=== PATIENT | female | born 1940 | race Caucasian/White ===

== ENCOUNTER 2023-07-17 15:13 | Outpatient (REF) | payer MEDICARE, SELFPAY ==
[2023-07-17 15:27] LABS: Basophils Percent Auto 0.3 % (0.0-3.0); Eosinophils Percent Auto 1.1 % (0.0-7.0); Hematocrit 31.2 % (33.0-51.0); Immature Granulocytes Pct Auto 0.8 %; Lymphocytes Percent Auto 18.1 % (20-44); Mean Corpuscular HGB Conc 32 gm/dL (32-36); Mean Corpuscular Hemoglobin 35 pg (26-34); Mean Corpuscular Volume 108 fL (80-100); Monocytes Percent Auto 11.7 % (0.0-11.0); Platelet Count* 68 K/uL (140-440); RDW Coefficient of Variation % 18.8 % (11.5-15.5); White Blood Count* 3.59 K/uL (4.50-11.00)
[2023-07-17 15:29] LABS: Chloride* 103 mmol/L (96-114); Potassium* 4.1 mmol/L (3.6-5.1); Sodium* 132 mmol/L (135-149)
[2023-07-17 15:32] LABS: Anion Gap 6 mEq/L (7-15); Carbon Dioxide* 23 mmol/L (20-32); Creatinine* 0.4 mg/dL (0.5-1.5); Estimated Glomerular Filt Rate 99 ml/min
[2023-07-17 15:33] LABS: Blood Urea Nitrogen* 18 mg/dL (7-30); Calcium* 9.4 mg/dL (8.4-10.6); Glucose* 178 mg/dL (60-115)
[2023-07-17 15:35] LABS: Slide Review Reflex Yes
[2023-07-17 15:50] LABS: Slide Review Acceptable Review (Acceptable)
== END 2023-07-17 15:14 | disposition home or self-care (01) ==
LOC: NPINS 15:13
PROVIDERS: PCP Family Medicine; Visit Provider Nurse Practitioner Adult Health
DX: K74.69 Other cirrhosis of liver (principal)
CPT/HCPCS: 80048; 82140; 85025

== ENCOUNTER 2023-07-26 10:22 | Outpatient (CLI) | payer OTHER, SELFPAY | END 2023-07-26 10:23 | disposition home or self-care (01) | LOC: AMB 07-31 06:46 | PROVIDERS: PCP Family Medicine; Visit Provider Emergency Medicine | DX: R41.82 Altered mental status, unspecified (principal) | CPT/HCPCS: A0425; A0427 ==

== ENCOUNTER 2023-07-26 10:47 | Inpatient (IN) | payer OTHER, SELFPAY ==
[2023-07-26] VITALS (22 sets, daily range): BP systolic 84–113; BP diastolic 35–70; PULSE 91–104; RESP 20–26; TEMP 36.2–36.4; O2SAT 92–97
--- NOTE | 2023-07-26 11:02 | ED_ITS ---
HPI - General Adult General Date Seen: 07/26/23 Chief complaint: Weakness Stated complaint: altered mental status Time Seen by Provider: 07/26/23 10:52 Source: patient, EMS, RN notes reviewed and old records reviewed Mode of arrival: EMS Limitations: no limitations History of Present Illness HPI narrative: The patient is an 83-year-old woman brought in by EMS for evaluation of altered mental status. She lives at [address] [facility], she has past medical history notable for cirrhosis, dementia, chronic kidney disease and UTI diagnosed on July 20, started on Keflex. They report the for the past 1-2 days she has been less responsive than usual and has not wanted to eat or drink. There is no reports of fever, vomiting,. Medics said that she was minimally responsive for them in terms of not answering questions. She is alert. To me, she answers questions quickly and appropriately. She denies pain or shortness of breath. She denies urinary symptoms. She knows that she was brought to the hospital. She says she does not feel sick, feels normal. Medics noted a blood sugar of 162, systolic blood pressure of 113. Review of her senior care paperwork shows the UA grew out Pseudomonas, I am not certain about sensitivities. She had blood work done on July 16, this was unremarkable aside from mild anemia with a hemoglobin of 10. Of an ammonia level was 10 at that time as well. Her code status is DNR DNI. Related Data Home Medications Medication Instructions Recorded Confirmed acetaminophen 325 mg tablet mg PO 07/26/23 aspirin 81 mg tablet,delayed 81 mg PO DAILY 07/26/23 07/26/23 release cholecalciferol (vitamin D3) 50 50 mcg PO DAILY 07/26/23 07/26/23 mcg (2,000 unit) tablet glipizide 5 mg tablet, extended 5 mg PO DAILY 07/26/23 07/26/23 release 24 hr insulin aspart U-100 100 unit/mL 1 sliding scale dose subcut 07/26/23 07/26/23 (3 mL) subcutaneous pen TIDWMEAL insulin glargine 100 unit/mL (3 20 unit subcut BID 07/26/23 07/26/23 mL) subcutaneous pen (Basaglar KwikPen U-100 Insulin) lactulose 10 gram/15 mL oral 45 ml PO TID 07/26/23 07/26/23 solution metoprolol tartrate 25 mg tablet 6.25 mg PO BID 07/26/23 07/26/23 mirtazapine 7.5 mg tablet 7.5 mg PO QPM 07/26/23 07/26/23 Allergies Allergy/AdvReac Type Severity Reaction Status Date / Time No Known Drug Allergies Allergy Verified 07/26/23 11:00 Review of Systems Status of ROS: Reports: 6 or more systems reviewed and unremarkable except as noted in History and below [facility] Medical History (Updated 07/26/23 @ 15:00 by Joanne Lockhart MD) Recurrent UTI ?N39.0 - Urinary tract infection, site not specified (ICD-10) Crohn disease ?K50.90 - Crohn's disease, unspecified, without complications (ICD-10) 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 ?K75.81 - Nonalcoholic steatohepatitis (VALENZUELA) (ICD-10) ?K74.60 - Unspecified cirrhosis of liver (ICD-10) Insulin dependent diabetes mellitus Surgical History (Updated 07/26/23 @ 13:24 by Joanne Lockhart MD) Hx of tonsillectomy ?Z90.89 - Acquired absence of other organs (ICD-10) Hx of appendectomy ?Z90.49 - Acquired absence of other specified parts of digestive tract (ICD- 10) S/P ILANA-BSO ?Z90.710 - Acquired absence of both cervix and uterus (ICD-10) ?Z90.722 - Acquired absence of ovaries, bilateral (ICD-10) ?Z90.79 - Acquired absence of other genital organ(s) (ICD-10) S/P ORIF (open reduction internal fixation) fracture ?Z98.890 - Other specified postprocedural states (ICD-10) ?Z87.81 - Personal history of (healed) traumatic fracture (ICD-10) Social History (Updated 07/26/23 @ 14:34 by Joanne Lockhart MD) Narrative: Lived with until a mechanical fall at home on June 18, has been at [facility] since June 24. Son Ervin would be medical decision maker if needed. Has discussed with family in the past that she requests DNR DNI status. What is your current living situation?: I presently have a place to live Problems where you live: no known problems Problems where you live details: no known problems In the past 12 months, utilities in danger of being shut off: no In past 12 months, lack of transportation kept you from medical appts, meetings, work, or getting things needed for daily living: no In the past 12 mos, have been you worried that your food would run out before you had money to buy more?: never true In the past 12 mos, the food you bought just didn't last and you didn't have money to buy more?: never true Highest level of school completed/degree received: 10th grade Smoking Status: Never smoker Do you use any of these nicotine containing products: None How often do you have a drink containing alcohol: never How often do you have six or more drinks on one occasion: Never AUDIT-C Alcohol total score: 0 Non-prescribed substance use: denies use Caffeine: No How often does anyone, including family, friends and others, physically hurt you : never How often does anyone, including family, friends and others, insult or talk down to you: never How often does anyone, including family, friends and others, threaten you with harm: never How often does anyone, including family, friends and others, scream or curse at you: never service: No Exam Narrative: Exam Narrative: Vital signs as noted above. In general, an alert, somewhat cachectic elderly woman. Nontoxic. Head: Normocephalic, atraumatic. Eyes: Pupils are equal reactive. Extraocular movements are full. Conjunctivae are icteric. ENT: Mucous membranes are slightly dry. Neck: Supple without lymphadenopathy. Heart: Mildly tachycardic, mildly irregular. Lungs: Clear bilaterally. Somewhat tachypneic, a little bit of accessory muscle use. Abdomen: Protuberant, suspect ascites. Nontender to palpation. Extremities: Splint in place on the left lower extremity where she previously had a fracture. No significant edema. Neurologic: Patient is alert and oriented to person and place. Speech is fluent. Face is symmetric. Affect: Normal. Skin: Warm and dry. Well perfused. Const: Vital Signs, click to edit/add: Vital Signs - 24 hr 07/26/23 10:55 07/26/23 11:03 07/26/23 11:04 Temperature 97.2 F L Pulse Rate 97 100 Pulse Rate [Pulse Oximeter] 99 Respiratory Rate 24 Blood Pressure 98/56 L Blood Pressure [Ri ght Upper Arm] 102/64 Pulse Oximetry 95 93 93 Oxygen Delivery Me thod Room Air 07/26/23 11:10 07/26/23 11:23 07/26/23 11:30 Temperature Pulse Rate 97 92 Pulse Rate [Pulse Oximeter] Respiratory Rate Blood Pressure Blood Pressure [Ri ght Upper Arm] Pulse Oximetry 95 95 97 Oxygen Delivery Me thod 07/26/23 11:31 07/26/23 11:45 07/26/23 12:00 Temperature Pulse Rate 97 98 97 Pulse Rate [Pulse Oximeter] Respiratory Rate Blood Pressure 93/59 L Blood Pressure [Ri ght Upper Arm] Pulse Oximetry 96 96 95 Oxygen Delivery Me thod 07/26/23 12:01 07/26/23 12:02 07/26/23 12:15 Temperature Pulse Rate 101 H 98 104 H Pulse Rate [Pulse Oximeter] Respiratory Rate Blood Pressure 98/42 L Blood Pressure [Ri ght Upper Arm] Pulse Oximetry 96 94 96 Oxygen Delivery Me thod 07/26/23 12:41 07/26/23 12:45 07/26/23 12:51 Temperature Pulse Rate 94 99 100 Pulse Rate [Pulse Oximeter] Respiratory Rate Blood Pressure 113/55 L Blood Pressure [Ri ght Upper Arm] Pulse Oximetry 92 94 94 Oxygen Delivery Me thod 07/26/23 13:00 07/26/23 13:01 Temperature Pulse Rate 96 96 Pulse Rate [Pulse Oximeter] Respiratory Rate Blood Pressure 98/58 L Blood Pressure [Ri ght Upper Arm] Pulse Oximetry 95 93 Oxygen Delivery Me thod Documenting provider has reviewed patient's vital signs: yes Course Course ED Course: Patient's mental status here seems to be probably at baseline, but family does also report decreased urine output over the past week or so, increased weakness. Patient denies complaints, she does seem tachypneic although she denies shortness of breath and O2 sats are normal. Diagnostic considerations brought a t this point include infection due to UTI, pyelonephritis, spontaneous bacterial peritonitis or other, sepsis, metabolic derangement, encephalopathy, acute coronary syndrome, pulmonary embolism, among others. Additional history provided by her son and [id number] on their arrival is that she was discharged to [facility] at the end of May after sustaining a femur fracture for which she was treated at [facility]. They report that prior to that she lives independently with her at home and got around quite well. Since arriving to [facility], they report an 11 lb weight loss. Over the past week they say that she is looking much more poorly, she is much weaker, seems to be retaining fluid, and mentation is decreased. She does have a history of non alcohol cirrhosis, is followed at [facility] every couple years but apparently does not have a prior history of ascites. Patient's evaluation here is notable for a mildly elevated white blood cell count 11.3, hemoglobin of 10.9, platelets of a [id number]. INR elevated at 2, D dimer elevated at 13.7. Venous gas shows a partially compensatedmetabolic acidosis, pH is 7.3, CO2 of 28, bicarb of 14. Patient is tachypneic, but O2 sats are normal, suspect that her tachypnea is related to her significant acidosis, less suspicious of PE particularly in the setting of an elevated INR. Metabolic panel notable for a sodium of 133, normal potassium, CO2 is 11. Normal gap. BUN is elevated at 63, creatinine is 2, it was 0.4 when checked at the end of June. Blood sugar is 135. Lactate markedly elevated at 11.6, total bilirubin 2.4, direct 1.2, mild elevations of AST and ALT, normal alk-phos. Ammonia level is still pending. CRP is elevated at 16. Urinalysis continues to show 10-25 red cells, 50-100 white blood cells and looks grossly purulent. This was a catheterized specimen. Minimal output into the catheter. Review of prior culture shows Pseudomonas which was sensitive to cefepime and imipenem among others. I did obtain a 2nd blood culture and then ordered imipenem. I gave her 250 mL of normal saline to start. I did do a bedside ultrasound, she has significant ascites, did not see a significant pericardial effusion or significant dilation of the right ventricle. She seems to have tolerated 250 mL of normal saline, will order a 2nd 250 mL. I am hesitant to use large volumes of fluid given her liver and renal failure. I have had an lengthy discussion with her son and [id number] about her status, which I think is tenuous. Discussed that if they would like more aggressive measures, ICU, hepatic specialist, option for dialysis etcetera we would need to transfer her. They feel that her wishes would be to be more conservative. They are comfortable with hospitalization here in [place] and understand that we will try some antibiotics and fluid, consider paracentesis for comfort. They understand that if she does not reverse with these measures, we would switch to comfort care. I think spontaneous bacterial peritonitis is relatively low on my list given absence of any abdominal tenderness or pain. Given that she is going to be on Imipenem for the urinary tract infection she will have adequate coverage for this. Likewise, she has a markedly elevated D-dimer and long bone fracture in May, she has been essentially bed ridden since then. She does not have asymmetric edema in her legs, she is not hypoxic, but certainly is at risk for pulmonary embolism. However, her INR is elevated, she cannot have CT scan of the chest. Discussed this all with the hospitalists, will consider Dopplers of the legs if this seems clinically appropriate. Second lactate was drawn just before leaving to the floor. Vital Signs Vital signs: Initial Vital Signs Temperature 97.2 F L 07/26/23 10:55 Temperature Source Temporal Artery Scan 07/26/23 10:55 Pulse Rate 99 07/26/23 10:55 Respiratory Rate 24 07/26/23 10:55 Blood Pressure 102/64 07/26/23 10:55 Blood Pressure Mean 76 07/26/23 10:55 Blood Pressure Position Supine 07/26/23 10:55 Pulse Oximetry 95 07/26/23 10:55 Oxygen Delivery Method Room Air 07/26/23 10:55 Vital Signs Temperature 97.2 F L 07/26/23 10:55 Pulse Rate 99 07/26/23 10:55 Respiratory Rate 24 07/26/23 10:55 Blood Pressure 102/64 07/26/23 10:55 Pulse Oximetry 95 07/26/23 10:55 Oxygen Delivery Method Room Air 07/26/23 10:55 Temperature 97.6 F 07/26/23 15:22 Pulse Rate 96 07/26/23 13:01 Respiratory Rate 26 H 07/26/23 15:22 Blood Pressure 96/70 07/26/23 15:22 Pulse Oximetry 94 07/26/23 15:22 Oxygen Delivery Method Room Air 07/26/23 15:22 Medications Administered Medications: Discontinued Medications Generic Name Dose Route Start Last Admin Trade Name Freq PRN Reason Stop Dose Admin Sodium Chloride 250 mls @ 250 mls/hr 07/26/23 10:55 07/26/23 13:03 0.9 % Sodium Chloride 250 Ml IV 07/26/23 11:54 Infused .Q1H ONE Infusion Imipenem/Cilastatin Sodium 500 100 mls @ 200 mls/hr 07/26/23 12:41 07/26/23 13:16 mg/ Sodium Chloride IVPB 07/26/23 12:42 200 mls/hr ONCE ONE Administration Medical Decision Making Lab Data Labs: Lab Results 07/26/23 07/26/23 07/26/23 Range/Units 11:15 11:20 12:00 WBC 11.26 H (4.50-11.00) K/uL RBC 3.21 L (4.00-5.20) m/uL Hgb 10.9 L (12.0-16.0) gm/dL Hct 35.6 (33.0-51.0) % MCV 111 H (80-100) fL MCH 34 (26-34) pg MCHC 31 L (32-36) gm/dL RDW Coeff of Farhan 18.4 H (11.5-15.5) % Plt Count 121 L (140-440) K/uL Neut % (Auto) 85.1 H (42.0-72.0) % Lymph % (Auto) 7.5 L (20-44) % [place] % (Auto) 7.1 (0.0-11.0) % Eos % (Auto) 0.0 (0.0-7.0) % Baso % (Auto) 0.0 (0.0-3.0) % Neut # (Auto) 9.60 H (1.7-7.0) K/uL Lymph # (Auto) 0.80 L (0.90-2.90) K/uL [place] # (Auto) 0.80 (0.00-0.90) K/UL Eos # (Auto) 0.00 (0.00-0.50) K/uL Baso # (Auto) 0.00 (0.00-0.30) K/uL Abs Immat Gran (auto) 0.00 (0.00-0.30) K/uL Imm/Tot Granulo (auto) 0.3 % INR 1.99 H (0.91-1.10) D-Dimer Quant (PE/DVT) 13.69 H (0.00-0.50) ug/ml VBG pH 7.297 L (7.32-7.43) VBG pCO2 28 L (40-50) mmHG VBG pO2 44.2 (25-47) mmHG VBG HCO3 14 L (21-28) mmol/L Sodium 133 L (135-149) mmol/L Potassium 4.8 (3.6-5.1) mmol/L Chloride 107 (96-114) mmol/L Carbon Dioxide 11 L (20-32) mmol/L Anion Gap 15 (7-15) mEq/L BUN 63 H (7-30) mg/dL Creatinine 2.0 H (0.5-1.5) mg/dL Estimated GFR 24 ml/min Glucose 135 H (60-115) mg/dL Lactate 11.6 H* (0.5-1.9) mmol/L Calcium 10.4 (8.4-10.6) mg/dL Total Bilirubin 2.4 H (0.1-1.5) mg/dL Direct Bilirubin 1.2 H (0.0-0.5) mg/dL AST 42 H (12-35) U/L ALT 42 H (4-35) U/L Alkaline Phosphatase 108 (40-150) U/L Ammonia < 9.0 L (13.1-30.0) umol/L C-Reactive Protein 15.8 H (0.5-1.0) mg/dL Total Protein 7.3 (6.0-8.3) g/dL Albumin 2.7 L (3.3-5.0) g/dL Urine Color Brown A (Yellow) Urine Appearance Cloudy A (Clear) Urine pH 5.5 (5.0-8.5) Ur Specific [place] 1.020 (1.000-1.030) Urine Protein Trace A (Negative) Urine Glucose (UA) Negative (Negative) Urine Ketones Trace A (Negative) Urine Blood 2+ A (Negative) Urine Nitrite Positive A (Negative) Urine Bilirubin 1+ A (Negative) Urine Urobilinogen 0.2 (0.2-1.0) Ur Leukocyte Esterase 3+ A (Negative) Urine RBC 10-25 A (0-2) Urine WBC 50-100 A (0-5) Urine WBC Clumps Few A (None) Ur Squamous Epith Cells Moderate A (None-Few) Urine Bacteria Many A (None) POC Troponin I 0.02 (0.01-0.04) ng/ml 07/26/23 Range/Units 13:18 WBC (4.50-11.00) K/uL RBC (4.00-5.20) m/uL Hgb (12.0-16.0) gm/dL Hct (33.0-51.0) % MCV (80-100) fL MCH (26-34) pg MCHC (32-36) gm/dL RDW Coeff of Farhan (11.5-15.5) % Plt Count (140-440) K/uL Neut % (Auto) (42.0-72.0) % Lymph % (Auto) (20-44) % [place] % (Auto) (0.0-11.0) % Eos % (Auto) (0.0-7.0) % Baso % (Auto) (0.0-3.0) % Neut # (Auto) (1.7-7.0) K/uL Lymph # (Auto) (0.90-2.90) K/uL [place] # (Auto) (0.00-0.90) K/UL Eos # (Auto) (0.00-0.50) K/uL Baso # (Auto) (0.00-0.30) K/uL Abs Immat Gran (auto) (0.00-0.30) K/uL Imm/Tot Granulo (auto) % INR (0.91-1.10) D-Dimer Quant (PE/DVT) (0.00-0.50) ug/ml VBG pH (7.32-7.43) VBG pCO2 (40-50) mmHG VBG pO2 (25-47) mmHG VBG HCO3 (21-28) mmol/L Sodium (135-149) mmol/L Potassium (3.6-5.1) mmol/L Chloride (96-114) mmol/L Carbon Dioxide (20-32) mmol/L Anion Gap (7-15) mEq/L BUN (7-30) mg/dL Creatinine (0.5-1.5) mg/dL Estimated GFR ml/min Glucose (60-115) mg/dL Lactate 11.6 H* (0.5-1.9) mmol/L Calcium (8.4-10.6) mg/dL Total Bilirubin (0.1-1.5) mg/dL Direct Bilirubin (0.0-0.5) mg/dL AST (12-35) U/L ALT (4-35) U/L Alkaline Phosphatase (40-150) U/L Ammonia (13.1-30.0) umol/L C-Reactive Protein (0.5-1.0) mg/dL Total Protein (6.0-8.3) g/dL Albumin (3.3-5.0) g/dL Urine Color (Yellow) Urine Appearance (Clear) Urine pH (5.0-8.5) Ur Specific [place] (1.000-1.030) Urine Protein (Negative) Urine Glucose (UA) (Negative) Urine Ketones (Negative) Urine Blood (Negative) Urine Nitrite (Negative) Urine Bilirubin (Negative) Urine Urobilinogen (0.2-1.0) Ur Leukocyte Esterase (Negative) Urine RBC (0-2) Urine WBC (0-5) Urine WBC Clumps (None) Ur Squamous Epith Cells (None-Few) Urine Bacteria (None) POC Troponin I (0.01-0.04) ng/ml Discharge Plan Discharge Clinical Impression: Renal failure, Liver failure, Sepsis Patient Disposition: Admitted As Observation
[2023-07-26] MEDS: 0.9 % SODIUM CHLORIDE 250 ml 250 ML IV (11:20)
[2023-07-26 11:36] LABS: Hematocrit 35.6 % (33.0-51.0); Hemoglobin* 10.9 gm/dL (12.0-16.0); Immature Granulocytes Pct Auto 0.3 %; Lymphocytes Percent Auto 7.5 % (20-44); Mean Corpuscular HGB Conc 31 gm/dL (32-36); Mean Corpuscular Hemoglobin 34 pg (26-34); Mean Corpuscular Volume 111 fL (80-100); Monocytes Percent Auto 7.1 % (0.0-11.0); Neutrophils Percent Auto 85.1 % (42.0-72.0); Platelet Count* 121 K/uL (140-440); RDW Coefficient of Variation % 18.4 % (11.5-15.5); Red Blood Count 3.21 m/uL (4.00-5.20); White Blood Count* 11.26 K/uL (4.50-11.00)
[2023-07-26 11:38] LABS: Lactate Sepsis w/Reflex* 11.6 mmol/L (0.5-1.9)
[2023-07-26 11:39] LABS: HCO3 VBG 14 mmol/L (21-28); PCO2 VBG 28 mmHG (40-50); PO2 VBG 44.2 mmHG (25-47); pH VBG 7.297 (7.32-7.43)
[2023-07-26 11:56] LABS: Albumin* 2.7 g/dL (3.3-5.0); Chloride* 107 mmol/L (96-114)
[2023-07-26 11:57] LABS: Potassium* 4.8 mmol/L (3.6-5.1); Sodium* 133 mmol/L (135-149)
[2023-07-26 11:59] LABS: Estimated Glomerular Filt Rate 24 ml/min
[2023-07-26 12:00] LABS: Alkaline Phosphatase* 108 U/L (40-150); Anion Gap 15 mEq/L (7-15); Aspartate Amino Transferase* 42 U/L (12-35); Bilirubin Direct* 1.2 mg/dL (0.0-0.5); Bilirubin Total* 2.4 mg/dL (0.1-1.5); Blood Urea Nitrogen* 63 mg/dL (7-30); Calcium* 10.4 mg/dL (8.4-10.6); Carbon Dioxide* 11 mmol/L (20-32); Glucose* 135 mg/dL (60-115); Total Protein* 7.3 g/dL (6.0-8.3)
[2023-07-26 12:07] LABS: Troponin, Point-of-Care* 0.02 ng/ml (0.01-0.04)
[2023-07-26 12:16] LABS: Appearance Urine Cloudy (Clear); Bilirubin Urine 1+ (Negative); Blood Urine 2+ (Negative); Color Urine Brown (Yellow); Glucose Urine Negative (Negative); Ketones Urine Trace (Negative); Leukocyte Esterase Urine 3+ (Negative); Nitrite Urine Positive (Negative); Protein Urine Trace (Negative); Urobilinogen Urine 0.2 (0.2-1.0); pH Urine 5.5 (5.0-8.5)
--- NOTE | 2023-07-26 12:18 | CT_ITS ---
Patient: ARSLAN TREJO Facility:?[facility] R[facility] Patient ID:?[id number] Site Patient ID:?[id number]. Site :?[id number] Study:?CT-Abdomen/Pelvis without contrast-07/26/2023 12:44:50 PM Ordering Physician:Milagros Fleming Final Report: INDICATION: Liver failure new ascites decreased urine output TECHNIQUE: CT abdomen and pelvis without contrast. COMPARISON: None. FINDINGS: Lower chest: Peribronchial thickening partially seen and atelectasis within the lower lobes. Liver: Cirrhotic morphology liver. Gallbladder and bile ducts: Cholelithiasis Pancreas: Unremarkable. No mass or inflammation. Spleen: Splenic granulomas. Splenomegaly measuring 14.4 centimeters. Adrenal glands: Normal in size. No nodules. Kidneys: Normal in size. No suspicious masses, stones, or hydronephrosis. GI tract: Diverticulosis. Vasculature: Abdominal aorta is normal in caliber. Lymph nodes: No lymphadenopathy. Peritoneum/Abdominal Wall: Large volume abdominopelvic ascites. Probable dependent debris in the posterior pelvis. Diffuse subcutaneous edema Pelvis: Baker catheter in the decompressed urinary bladder Bones: Unremarkable for age. IMPRESSION: 1. Cirrhotic morphology liver mildly enlarged spleen. Large volume abdominopelvic ascites. Diffuse subcutaneous edema. Please note that all CT scans at this facility use dose modulation, iterative reconstruction, and/or weight-based dosing when appropriate to reduce radiation dose to as low as reasonably achievable. Dictated by Diann Guevara MD @ 07/26/2023 2:09:20 PM Signed by:?Diann Guevara MD @07/26/2023 2:09:20 PM (Electronic Signature)
[2023-07-26 12:20] LABS: C Reactive Protein* 15.8 mg/dL (0.5-1.0); D Dimer Quantitative* 13.69 ug/ml (0.00-0.50); Slide Review Reflex No
[2023-07-26 12:36] LABS: Alanine Aminotransferase* 42 U/L (4-35)
[2023-07-26 12:37] LABS: Bacteria Urine Many; Squamous Epithelial Cell Urine Moderate (None-Few); WBC Clumps Urine Few; WBC Urine 50-100 (0-5)
[2023-07-26 12:59] LABS: INR 1.99 (0.91-1.10)
[2023-07-26 13:04] LABS: Ammonia* < 9.0 umol/L (13.1-30.0)
[2023-07-26 13:44] LABS: Lactate Sepsis 2 Hour 11.6 mmol/L (0.5-1.9)
--- NOTE | 2023-07-26 14:11 | P.IMHP_ITS ---
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 Patient is unable to provide much history to me today; of most of her history is gleaned from chart review and discussions with son Ervin and [id number]. Porsha had a fall at home on 06/18/23; she was subsequently diagnosed with a left distal femur fracture and transferred to [facility], undergoing an ORIF on 06/19/23. She was discharged to [address] [place] [address] on June 24. Over the past month, she has lost approximately 11 lb, has been noted to become more weak, hardly eating. Over the past couple of days she has become significantly less responsive. No known fevers or sick contacts. No vomiting or diarrhea. Family has noted that her abdomen has become significantly more distended. Last week, she was diagnosed with the UTI and recently finished a course of Keflex. ER course and findings: - creatinine of 2.0 (had been <0.5 over the past year) - bilirubin of 2.4 (had been up to 7+ in [place]), elevated AST and ALT - INR 1.99, platelets 121 - elevated lactate and D-dimer - + UA, blood and urine cultures pending - CT abdomen and pelvis reveals bilateral lower lobe atelectasis with liver cirrhosis, splenomegaly - MELD Na score of 27 - Imipenem initiated Upon arrival to floor, patient is minimally responsive. She is able to give me yes and no answers. History is are updated below, based on chart review and discussion with family members. Review of Systems Status of ROS: Reports: unobtainable due to mental status [facility] Medical History (Updated 07/26/23 @ 15:00 by Joanne Lockhart MD) Recurrent UTI ?N39.0 - Urinary tract infection, site not specified (ICD-10) Crohn disease ?K50.90 - Crohn's disease, unspecified, without complications (ICD-10) 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 ?K75.81 - Nonalcoholic steatohepatitis (VALENZUELA) (ICD-10) ?K74.60 - Unspecified cirrhosis of liver (ICD-10) Insulin dependent diabetes mellitus Surgical History (Updated 07/26/23 @ 13:24 by Joanne Lockhart MD) Hx of tonsillectomy ?Z90.89 - Acquired absence of other organs (ICD-10) Hx of appendectomy ?Z90.49 - Acquired absence of other specified parts of digestive tract (ICD- 10) S/P ILANA-BSO ?Z90.710 - Acquired absence of both cervix and uterus (ICD-10) ?Z90.722 - Acquired absence of ovaries, bilateral (ICD-10) ?Z90.79 - Acquired absence of other genital organ(s) (ICD-10) S/P ORIF (open reduction internal fixation) fracture ?Z98.890 - Other specified postprocedural states (ICD-10) ?Z87.81 - Personal history of (healed) traumatic fracture (ICD-10) Social History (Updated 07/26/23 @ 14:34 by Joanne Lockhart MD) Narrative: Lived with until a mechanical fall at home on June 18, has been at [facility] since June 24. Son Ervin would be medical decision maker if needed. Has discussed with family in the past that she requests DNR DNI status. Smoking Status: Unknown if ever smoked Meds Home Medications and Allergies Home Medications Medication Instructions Recorded Confirmed Type acetaminophen 325 mg tablet mg PO 07/26/23 History aspirin 81 mg tablet,delayed 81 mg PO DAILY 07/26/23 07/26/23 History release cholecalciferol (vitamin D3) 50 50 mcg PO DAILY 07/26/23 07/26/23 History mcg (2,000 unit) tablet glipizide 5 mg tablet, extended 5 mg PO DAILY 07/26/23 07/26/23 History release 24 hr insulin aspart U-100 100 unit/mL 1 sliding scale dose subcut 07/26/23 07/26/23 History (3 mL) subcutaneous pen TIDWMEAL insulin glargine 100 unit/mL (3 20 unit subcut BID 07/26/23 07/26/23 History mL) subcutaneous pen (Basaglar KwikPen U-100 Insulin) lactulose 10 gram/15 mL oral 45 ml PO TID 07/26/23 07/26/23 History solution metoprolol tartrate 25 mg tablet 6.25 mg PO BID 07/26/23 07/26/23 History mirtazapine 7.5 mg tablet 7.5 mg PO QPM 07/26/23 07/26/23 History Allergies Allergy/AdvReac Type Severity Reaction Status Date / Time No Known Drug Allergies Allergy Verified 07/26/23 11:00 Exam Narrative: Exam Narrative: GEN: Patient is laying in bed and appears chronically ill. Lips appear dry and cracked HEENT: No significant scleral icterus, oropharynx dry CV: S1 S2 with rate in the 90s, soft systolic murmur R: Fine bibasilar crackles, no wheezing Abdomen: Distended, + fluid wave Ext: 3-4+ pitting edema bilateral lower extremities, wearing left knee brace after recent surgery, + onychomycosis Skin: 4 cm x 2 cm skin breakdown L buttock, no drainage, skin tear of left elbow is covered, + erythema in bilateral groin folds Psych: Flat affect, only yes/no answers Const: Vital Signs, click to edit/add: Vital Signs - 24 hr 07/26/23 10:55 07/26/23 11:03 07/26/23 11:04 Temperature 97.2 F L Pulse Rate 97 100 Pulse Rate [Pulse Oximeter] 99 Respiratory Rate 24 Blood Pressure 98/56 L Blood Pressure [Ri ght Upper Arm] 102/64 Pulse Oximetry 95 93 [facility] 07/26/23 11:10 07/26/23 11:23 07/26/23 11:30 Temperature Pulse Rate 97 92 Pulse Rate [Pulse Oximeter] Respiratory Rate Blood Pressure Blood Pressure [Ri ght Upper Arm] Pulse Oximetry 95 95 97 [facility] 07/26/23 11:31 07/26/23 11:45 07/26/23 12:00 Temperature Pulse Rate 97 98 97 Pulse Rate [Pulse Oximeter] Respiratory Rate Blood Pressure 93/59 L Blood Pressure [Ri ght Upper Arm] Pulse Oximetry 96 96 95 [facility] 07/26/23 12:01 07/26/23 12:02 07/26/23 12:15 Temperature Pulse Rate 101 H 98 104 H Pulse Rate [Pulse Oximeter] Respiratory Rate Blood Pressure 98/42 L Blood Pressure [Ri ght Upper Arm] Pulse Oximetry 96 94 96 [facility] 07/26/23 12:41 07/26/23 12:45 07/26/23 12:51 Temperature Pulse Rate 94 99 100 Pulse Rate [Pulse Oximeter] Respiratory Rate Blood Pressure 113/55 L Blood Pressure [Ri ght Upper Arm] Pulse Oximetry 92 94 94 Oxygen Delivery [facility] 07/26/23 13:00 07/26/23 13:01 Temperature Pulse Rate 96 96 Pulse Rate [Pulse Oximeter] Respiratory Rate Blood Pressure 98/58 L Blood Pressure [Ri ght Upper Arm] Pulse Oximetry 95 93 Oxygen Delivery [facility] Hospitalist - H&P: Result Labs Labs: Short CBC 07/26/23 Range/Units 11:20 WBC 11.26 H (4.50-11.00) K/uL Hgb 10.9 L (12.0-16.0) gm/dL Hct 35.6 (33.0-51.0) % Plt Count 121 L (140-440) K/uL BMP 07/26/23 11:20 Sodium 133 L Potassium 4.8 Chloride 107 Carbon Dioxide 11 L BUN 63 H Creatinine 2.0 H Glucose 135 H Calcium 10.4 Liver Function 07/26/23 Range/Units 11:20 Total Bilirubin 2.4 H (0.1-1.5) mg/dL Direct Bilirubin 1.2 H (0.0-0.5) mg/dL AST 42 H (12-35) U/L ALT 42 H (4-35) U/L Alkaline Phosphatase 108 (40-150) U/L Albumin 2.7 L (3.3-5.0) g/dL Urine 07/26/23 Range/Units 12:00 Urine Color Brown A (Yellow) Urine Appearance Cloudy A (Clear) Urine pH 5.5 (5.0-8.5) Ur Specific [place] 1.020 (1.000-1.030) Urine Protein Trace A (Negative) Urine Glucose (UA) Negative (Negative) Assessment and Plan Assessment and plan (1) Sepsis: Problem comment: - +SIRS as evidenced by elevated lactate, acidosis, tachypnea - UTI possible source, also consider SBP, atypical PNA, cellulitis, DVT/PE - long discussion held with son Ervin and his ; they are mandible to antibiotic therapy at this time, do not request any further aggressive interventions - defer imaging for DVT/PE given GI, elevated INR, and thrombocytopenia - family understands that this likely represents terminal illness and want to make sure that Porsha is comfortable, would like to trial abx and reassess - continue Imipenem (/), close monitoring Status: Acute (2) 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: Problem comment: - with sequela of ascites, elevated INR, thrombocytopenia, macrocytic anemia, elevated LFTs, GI - not clinically stable for paracentesis at this time with hypotension, thrombocytopenia, elevated INR; family aware Status: Acute (3) Insulin dependent diabetes mellitus: Problem comment: - Last A1C 7.4 06/2023 - given decreased po intake and GI, holding metformin and insulin - Accu-Cheks to ensure no hypoglycemia Status: Acute (4) Renal failure: Problem comment: - GI in the setting of chronic liver disease, unable to tolerate large quantities of IVFs given ascites, hypoalbuminemia - family aware that patient's situation is very tenuous Status: Acute Plan - per above - son Ervin and updated at bedside, questions answered
[2023-07-26] MEDS: PANTOPRAZOLE SODIUM 40 MG INJ IVP (16:45)
[2023-07-26] MEDS: MIRTAZAPINE 15 MG TABLET 7.5 MG PO (18:31)
--- NOTE | 2023-07-26 19:29 | PC.NURSE ---
patient alert to self. unable to answer questions. Son, Ervin was able to give information. Patient's decker patent and draining brown urine. Patient refusing to eat and had few some apple juice. Patient's left leg in brace. unable to rate pain. Patient naps more than an hour. Blood sugar 96. Patient 94% on RA.
[2023-07-26] MEDS: 0.9 % SODIUM CHLORIDE 250 ml IV (20:11)
[2023-07-26] MEDS: SODIUM CHLORIDE 0.9 % (FLUSH) 10 ML SYRINGE 5 ML IVF (21:12)
[2023-07-27] MEDS: MORPHINE 4 MG/ML INJ IVP ×2 (06:24→16:30)
[2023-07-27 06:44] LABS: HCO3 VBG 8 mmol/L (21-28); PCO2 VBG 26 mmHG (40-50)
[2023-07-27 06:54] LABS: Hematocrit 39.7 % (33.0-51.0); Hemoglobin* 11.9 gm/dL (12.0-16.0); Immature Granulocytes Pct Auto 1.5 %; Lymphocytes Percent Auto 6.9 % (20-44); Mean Corpuscular HGB Conc 30 gm/dL (32-36); Mean Corpuscular Hemoglobin 34 pg (26-34); Mean Corpuscular Volume 115 fL (80-100); Monocytes Percent Auto 7.3 % (0.0-11.0); Neutrophils Percent Auto 84.3 % (42.0-72.0); Platelet Count* 110 K/uL (140-440); RDW Coefficient of Variation % 18.3 % (11.5-15.5); Red Blood Count 3.46 m/uL (4.00-5.20); White Blood Count* 13.27 K/uL (4.50-11.00)
[2023-07-27 06:56] LABS: pH VBG 7.118 (7.32-7.43)
[2023-07-27 06:58] LABS: Slide Review Reflex No
[2023-07-27 07:00] VITALS: RESP 20
--- NOTE | 2023-07-27 07:01 | PC.NURSE ---
End of shift [id number]: Alert to self. MD updated on VS. See orders. Turn and repo q2h. Family at bedside. PRN morphine. Pt sleeping and appears comfortable on reassessment. Baker patent with minimal dark colored urine. x2 incontinent loose stools. Mepilex on coccyx dry and intact.
[2023-07-27 07:20] LABS: INR 1.96 (0.91-1.10); Prothrombin Time 23.7 Seconds
[2023-07-27 07:21] LABS: Albumin* 2.9 g/dL (3.3-5.0); Chloride* 107 mmol/L (96-114)
[2023-07-27 07:22] LABS: Sodium* 135 mmol/L (135-149)
[2023-07-27 07:24] LABS: Alkaline Phosphatase* 87 U/L (40-150); Anion Gap 22 mEq/L (7-15); Aspartate Amino Transferase* 81 U/L (12-35); Blood Urea Nitrogen* 70 mg/dL (7-30); Creatinine* 2.6 mg/dL (0.5-1.5); Estimated Glomerular Filt Rate 18 ml/min; Glucose* 87 mg/dL (60-115); Total Protein* 7.8 g/dL (6.0-8.3)
[2023-07-27 07:25] LABS: Calcium* 10.2 mg/dL (8.4-10.6)
[2023-07-27 07:34] LABS: Potassium* 6.2 mmol/L (3.6-5.1)
[2023-07-27 07:35] LABS: Carbon Dioxide* 6 mmol/L (20-32)
[2023-07-27 07:51] LABS: Alanine Aminotransferase* 40 U/L (4-35)
--- NOTE | 2023-07-27 09:12 | PM.IMPN1 ---
Progress Note: A&P Assessment and plan (1) Sepsis: Problem details: - +SIRS as evidenced by elevated lactate, acidosis, tachypnea - UTI possible source, also consider SBP, atypical PNA, cellulitis, DVT/PE - family prefers comfort focus measures, would like to continue imipenem but otherwise formally transition to comfort cares today Status: Acute (2) 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: Problem details: - with sequela of ascites, elevated INR, thrombocytopenia, macrocytic anemia, elevated LFTs, GI - not clinically stable for paracentesis at this time with hypotension, thrombocytopenia, elevated INR; family aware Status: Acute (3) Insulin dependent diabetes mellitus: Problem details: - Last A1C 7.4 06/2023 - given decreased po intake and GI, holding metformin and insulin - Accu-Cheks prn Status: Acute (4) Renal failure: Problem details: - GI in the setting of chronic liver disease, unable to tolerate large quantities of IVFs given ascites, hypoalbuminemia - noted to have hyperkalemia on 07/26 Status: Acute Plan - transition to comfort care, continue 1-2 more doses of antibiotic - continue to reassess patient often; pending clinical course, may be able to discharge back to [facility] hospice tomorrow, although current status may limit ability to transfer - son Ervin updated at bedside, questions answered Subjective Date Seen: 07/27/23 Interval history: Porsha was admitted last night for acute kidney injury in the setting of 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 Family elected to not pursue transfer or aggressive interventions, they were amenable to antibiotics to see if she made any significant change. This morning, her labs show worsening acidosis, continued increasing creatinine with hyperkalemia. Reviewed findings with son Ervin, who was amenable to transitioning to comfort focused measures. He would like to continue antibiotics for 1-2 more doses. He will be calling family to come visit patient today. Exam Narrative: Exam Narrative: Porsha is laying in bed with intermittent tachypnea and bradypnea She is not responsive to my voice or to sternal rub this morning, will occasionally open right eye only Massive ascites of abdomen with + fluid wave Const: Vital Signs, click to edit/add: Vital Signs - 24 hr 07/26/23 10:55 07/26/23 11:03 07/26/23 11:04 Temperature 97.2 F L Pulse Rate 97 100 Pulse Rate [Bilate ral Radial] Pulse Rate [Pulse Oximeter] 99 Respiratory Rate 24 Blood Pressure 98/56 L Blood Pressure [Le ft Arm] Blood Pressure [Ri ght Arm] Blood Pressure [Ri ght Upper Arm] 102/64 Pulse Oximetry 95 93 93 Oxygen Delivery Me thod Room Air 07/26/23 11:10 07/26/23 11:23 07/26/23 11:30 Temperature Pulse Rate 97 92 Pulse Rate [Bilate ral Radial] Pulse Rate [Pulse Oximeter] Respiratory Rate Blood Pressure Blood Pressure [Le ft Arm] Blood Pressure [Ri ght Arm] Blood Pressure [Ri ght Upper Arm] Pulse Oximetry 95 95 [address] [facility] 07/26/23 11:31 07/26/23 11:45 07/26/23 12:00 Temperature Pulse Rate 97 98 97 Pulse Rate [Bilate ral Radial] Pulse Rate [Pulse Oximeter] Respiratory Rate Blood Pressure 93/59 L Blood Pressure [Le ft Arm] Blood Pressure [Ri ght Arm] Blood Pressure [Ri ght Upper Arm] Pulse Oximetry 96 96 95 Oxygen Delivery [facility] 07/26/23 12:01 07/26/23 12:02 07/26/23 12:15 Temperature Pulse Rate 101 H 98 104 H Pulse Rate [Bilate ral Radial] Pulse Rate [Pulse Oximeter] Respiratory Rate Blood Pressure 98/42 L Blood Pressure [Le ft Arm] Blood Pressure [Ri ght Arm] Blood Pressure [Ri ght Upper Arm] Pulse Oximetry 96 94 96 Oxygen Delivery Ar thod 07/26/23 12:41 07/26/23 12:45 07/26/23 12:51 Temperature Pulse Rate 94 99 100 Pulse Rate [Bilate ral Radial] Pulse Rate [Pulse Oximeter] Respiratory Rate Blood Pressure 113/55 L Blood Pressure [Le ft Arm] Blood Pressure [Ri ght Arm] Blood Pressure [Ri ght Upper Arm] Pulse Oximetry 92 94 94 Oxygen Delivery Ar [facility]od 07/26/23 13:00 07/26/23 13:01 07/26/23 15:00 Temperature Pulse Rate 96 96 Pulse Rate [Bilate ral Radial] Pulse Rate [Pulse Oximeter] Respiratory Rate 26 H Blood Pressure 98/58 L Blood Pressure [Le ft Arm] Blood Pressure [Ri ght Arm] Blood Pressure [Ri ght Upper Arm] Pulse Oximetry 95 93 94 Oxygen Delivery Me thod Room Air 07/26/23 15:00 07/26/23 15:00 07/26/23 15:22 Temperature 97.6 F 97.6 F Pulse Rate 97 Pulse Rate [Bilate ral Radial] 91 Pulse Rate [Pulse Oximeter] Respiratory Rate 26 H 26 H Blood Pressure Blood Pressure [Le ft Arm] Blood Pressure [Ri ght Arm] 96/70 96/70 Blood Pressure [Ri ght Upper Arm] Pulse Oximetry 94 94 Oxygen Delivery Ar thod Room Air Room Air 07/26/23 15:22 07/26/23 19:30 07/26/23 19:33 Temperature 97.3 F L Pulse Rate Pulse Rate [Bilate ral Radial] 98 Pulse Rate [Pulse Oximeter] Respiratory Rate 26 H 20 Blood Pressure Blood Pressure [Le ft Arm] 91/54 L Blood Pressure [Ri ght Arm] 84/35 L Blood Pressure [Ri ght Upper Arm] Pulse Oximetry 94 [address] [facility] Room Air 07/26/23 23:58 07/27/23 07:00 Temperature Pulse Rate Pulse Rate [Bilate ral Radial] Pulse Rate [Pulse Oximeter] Respiratory Rate 20 20 Blood Pressure Blood Pressure [Le ft Arm] Blood Pressure [Ri ght Arm] Blood Pressure [Ri ght Upper Arm] Pulse Oximetry 96 Oxygen Delivery Ar thod Room Air Labs Labs: Laboratory Results - last 24 hr 07/26/23 07/26/23 07/26/23 11:15 11:20 12:00 WBC 11.26 H RBC 3.21 L Hgb 10.9 L Hct 35.6 MCV 111 H MCH 34 MCHC 31 L RDW Coeff of Farhan 18.4 H Plt Count 121 L Neut % (Auto) 85.1 H Lymph % (Auto) 7.5 L [place] % (Auto) 7.1 Eos % (Auto) 0.0 Baso % (Auto) 0.0 Neut # (Auto) 9.60 H Lymph # (Auto) 0.80 L [place] # (Auto) 0.80 Eos # (Auto) 0.00 Baso # (Auto) 0.00 Abs Immat Gran (auto) 0.00 Imm/Tot Granulo (auto) 0.3 INR 1.99 H D-Dimer Quant (PE/DVT) 13.69 H VBG pH 7.297 L VBG pCO2 28 L VBG pO2 44.2 VBG HCO3 14 L Sodium 133 L Potassium 4.8 Chloride 107 Carbon Dioxide 11 L Anion Gap 15 BUN 63 H Creatinine 2.0 H Estimated GFR 24 Glucose 135 H Lactate 11.6 H* Calcium 10.4 Total Bilirubin 2.4 H Direct Bilirubin 1.2 H AST 42 H ALT 42 H Alkaline Phosphatase 108 Ammonia < 9.0 L C-Reactive Protein 15.8 H Total Protein 7.3 Albumin 2.7 L Urine Color Brown A Urine Appearance Cloudy A Urine pH 5.5 Ur Specific [place] 1.020 Urine Protein Trace A Urine Glucose (UA) Negative Urine Ketones Trace A Urine Blood 2+ A Urine Nitrite Positive A Urine Bilirubin 1+ A Urine Urobilinogen 0.2 Ur Leukocyte Esterase 3+ A Urine RBC 10-25 A Urine WBC 50-100 A Urine WBC Clumps Few A Ur Squamous Epith Cells Moderate A Urine Bacteria Many A POC Troponin I 0.02 07/26/23 07/27/23 13:18 05:50 WBC 13.27 H RBC 3.46 L Hgb 11.9 L Hct 39.7 MCV 115 H MCH 34 MCHC 30 L RDW Coeff of Farhan 18.3 H Plt Count 110 L Neut % (Auto) 84.3 H Lymph % (Auto) 6.9 L [place] % (Auto) 7.3 Eos % (Auto) 0.0 Baso % (Auto) 0.0 Neut # (Auto) 11.20 H Lymph # (Auto) 0.90 [place] # (Auto) 1.00 H Eos # (Auto) 0.00 Baso # (Auto) 0.00 Abs Immat Gran (auto) 0.20 Imm/Tot Granulo (auto) 1.5 INR 1.96 H D-Dimer Quant (PE/DVT) VBG pH 7.118 L* VBG pCO2 26 L VBG pO2 102.0 H VBG HCO3 8 L Sodium 135 Potassium 6.2 H* Chloride 107 Carbon Dioxide 6 L* Anion Gap 22 H BUN 70 H Creatinine 2.6 H Estimated GFR 18 Glucose 87 Lactate 11.6 H* 16.0 H* Calcium 10.2 Total Bilirubin 3.0 H Direct Bilirubin AST 81 H ALT 40 H Alkaline Phosphatase 87 Ammonia C-Reactive Protein Total Protein 7.8 Albumin 2.9 L Urine Color Urine Appearance Urine pH Ur Specific [place] Urine Protein Urine Glucose (UA) Urine Ketones Urine Blood Urine Nitrite Urine Bilirubin Urine Urobilinogen Ur Leukocyte Esterase Urine RBC Urine WBC Urine WBC Clumps Ur Squamous Epith Cells Urine Bacteria POC Troponin I
--- NOTE | 2023-07-27 10:52 | REH.OT ---
OT: Initially had OT order, however patient transitioned to comfort cares and order discontinued per MD.
[2023-07-27 15:00] VITALS: PULSE 98; RESP 20
[2023-07-27] MEDS: SODIUM CHLORIDE 0.9 % (FLUSH) 10 ML SYRINGE 5 ML IVF ×2 (16:31→21:53)
--- NOTE | 2023-07-27 19:34 | PC.NURSE ---
Patient turned and repo Q2. IV morphine administered for pain. Family at bedside throughout the day. Patient had 5ml of output in catheter during shift.
[2023-07-27] MEDS: MORPHINE 10 MG/0.5 ML ORAL SOLN PO ×2 (21:42→23:28)
--- NOTE | 2023-07-28 06:36 | PC.NURSE ---
End of shift [id number]: Family at bedside. PRN morphine give for pain. Turn and repo. Baker in place with minimal output.
[2023-07-28 07:00] VITALS: BP 55/37; PULSE 107; RESP 12; O2SAT 93
--- NOTE | 2023-07-28 13:30 | PM.IMPN1 ---
Progress Note: A&P Assessment and plan (1) Sepsis: Problem details: - +SIRS as evidenced by elevated lactate, acidosis, tachypnea - UTI possible source, also consider SBP, atypical PNA, cellulitis, DVT/PE - transitioned to comfort care status on 07/27/2023 - at this point, appears to be imminent and we will defer transfer Status: Acute (2) 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: Problem details: - with sequela of ascites, elevated INR, thrombocytopenia, macrocytic anemia, elevated LFTs, GI - not clinically stable for paracentesis at this time with hypotension, thrombocytopenia, elevated INR; family aware Status: Acute (3) Insulin dependent diabetes mellitus: Problem details: - Last A1C 7.4 06/2023 - given decreased po intake and GI, holding metformin and insulin - Accu-Cheks prn Status: Acute (4) Renal failure: Problem details: - GI in the setting of chronic liver disease, unable to tolerate large quantities of IVFs given ascites, hypoalbuminemia - noted to have hyperkalemia on 07/26 Status: Acute Plan - per above - reviewed plan of care with son Ervin at bedside Subjective Date Seen: 07/28/23 Interval history: Porsha was admitted to the hospital on 07/25 for acute kidney failure in the setting of chronic liver disease (cirrhosis 2/2 VALENZUELA), in addition to possible sepsis (UTI likely source vs cellulitis). Given her worsening clinical status after admission, family elected to transition to comfort cares yesterday. She has been receiving prn Ativan and is resting comfortably. Continues to have no UOP and worsening abdominal ascites. Exam Narrative: Exam Narrative: Porsha is resting comfortably in bed, she is having episodes of bradypnea. Const: Vital Signs, click to edit/add: Vital Signs - 24 hr 07/27/23 15:00 07/28/23 07:00 Pulse Rate [Bilate ral Radial] 98 Pulse Rate [Left P ulse Oximeter] 107 H Respiratory Rate 20 12 Blood Pressure [Ri ght Arm] 55/37 L Pulse Oximetry 93 Oxygen Delivery Me thod Room Air
[2023-07-28] MEDS: MORPHINE 10 MG/0.5 ML ORAL SOLN PO ×2 (14:52→18:20)
--- NOTE | 2023-07-28 19:18 | PC.NURSE ---
End of Shift: Patient turned and repositioned only this shift. Morphine given PRN, and appears to be resting comfortably. No urine output via decker. Family at bedside. ?
--- NOTE | 2023-07-28 21:50 | PM.DN ---
Pronouncement Note Date and Time of Date of : 07/28/23 Time of : 21:32 PCOD Preliminary cause of : Urosepsis Contributing Factors (1) Sepsis: Contributing factors: - Gram negative rods, urogenic source - Patient despite IV imipenem/cilastin (2) 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: Contributing factors: - End-stage hepatic cirrhosis due to VALENZUELA (3) Insulin dependent diabetes mellitus: (4) Renal failure: Summary Additional details: 83 year old woman with underlying end-stage hepatic cirrhosis due to underlying VALENZUELA presented with sepsis. Family opted for comfort focused treatments in great measure, but asked that we attempt IV antibiotic therapy, which we did with IV imipenem/cilastin. Despite our supportive efforts, patient rapidly declined and expectedly with son and grandson at her bedside today at 2132 this evening. Reviewed with patient son and grandson, both of whom expressed gratitude to the hospital staff for caring for their mother/grandmother. Additional Data Confirmation of : no pulse, no respirations, no heart sounds, pupils fixed and dilated and other (No spontaneous movement.) Family: at bedside Additional persons at bedside: other (RN and Charge nurse.) Attending/PCP notified?: Yes Attending physician: Joanne Lockhart MD Time Seen by Provider: 21:40 Date Seen: 07/28/23 Was code activated?: No Autopsy requested?: No elevator examiner notified?: No Organ bank notified?: Yes Advance directives: Yes
--- NOTE | 2023-07-29 01:44 | PC.NURSE ---
Pt on comfort cares, getting Q2H turned and repositioned. Pt was last turned and repositioned around 0840. Pt was having agonal breaths molding of the feet and hands. Family put motor and controls tester light at 2130 reporting that they believed the pt had passed, Charge nurse called MD, time of called at 2131. Ismael Kirkpatrick [facility] home services called per family request. Pt was washed up and IV catheter and urinary catheter taken out both with catheter tips intact.
== END 2023-07-28 21:32 | disposition expired | DRG 872 ==
LOC: ED 13:12 → MEDSURG 13:13
PROVIDERS: Admitting Provider Family Medicine; Emergency Provider Emergency Medicine; PCP Family Medicine; Visit Provider Family Medicine
DX: A41.52 Sepsis due to Pseudomonas (principal); N17.8 Other acute kidney failure; R18.8 Other ascites; K74.60 Unspecified cirrhosis of liver; K75.81 Nonalcoholic steatohepatitis (NASH); E11.9 Type 2 diabetes mellitus without complications; Z79.4 Long term (current) use of insulin
CPT/HCPCS: 36415; 74176; 80048; 80053; 80076; 81001; 82140; 82803; 82962; 83605; 84484; 85025; 85379; 85610; 86140; 87040; 87086; 87186; 93005; 94761; 99285; A9270; C9113; J0743; J2270; J7050